=== PATIENT | male | born 2000 | race Caucasian/White ===

== ENCOUNTER 2021-07-27 01:35 | Emergency (ER) | payer SELFPAY ==
[~2021-07-27] VITALS: Ht 190.5 cm; Wt 73.6 kg
[2021-07-27 01:42] VITALS: BP 136/84
[2021-07-27 02:53] LABS: Hemoglobin 13.5 g/dL (13.5-17.5); Mean Corpuscular Hemoglobin 31.7 pg (28.0-32.0); Mean Corpuscular Hgb Conc. 34.7 g/dL (32.0-36.0); Mean Corpuscular Volume 91.4 fL (80.0-100.0); Red Blood Cells 4.27 10^6/uL (4.5-5.90); Red Cell Distribution Width 13.3 % (11.8-14.3); White Blood Cell 5.5 10^3/uL (4.4-10.8)
[2021-07-27 03:04] LABS: Albumin 4.1 g/dL (3.4-5.0); Anion Gap 3 (5-15); Blood Urea Nitrogen 13 mg/dL (7-18); Calcium 8.7 mg/dL (8.5-10.1); Carbon Dioxide 29 mmol/L (21-32); Chloride 106 mmol/L (98-107); Glucose 81 mg/dL (74-106); Sodium 138 mmol/L (136-145)
[2021-07-27 03:06] LABS: Alanine Aminotransferase 37 U/L (16-61); Aspartate Aminotransferase 25 U/L (15-37); BUN/Creatinine Ratio 13.5; GFR African American 128 mL/min; GFR Non-African American 106 mL/min
[2021-07-27 03:10] LABS: Alkaline Phosphatase 72 U/L (45-117); Bilirubin, Total 1.4 mg/dL (0.2-1.0); Total Protein 6.9 g/dL (6.4-8.2)
[2021-07-27 03:10] LABS: Basophils % (manual) 0 (0.0-2.0); Blast Cells 0; Metamyelocytes % 0; Myelocytes % 0; Promyelocytes % 0
[2021-07-27 03:48] LABS: Band Neutrophils % (manual) 2; Eosinophils % (manual) 4 (0-7); Lymphocytes % (manual) 37 (10.0-50.0); Monocytes % (manual) 16 (0-12); Reactive Lymphocytes 1
== END 2021-07-27 04:49 | disposition left against medical advice (07) ==
LOC: ER 01:35
DX: R07.9 Chest pain, unspecified (principal); Z53.21 Procedure and treatment not carried out due to patient leaving prior to being seen by health care provider
CPT/HCPCS: 36415; 71045; 80053; 84484; 85007; 85027; 93005